=== PATIENT | male | born 1995 | race Caucasian/White ===

== ENCOUNTER 2019-09-19 15:18 | Emergency (ER) | payer SELFPAY ==
[2019-09-19] MEDS ORDERED: 0.9 % SODIUM CHLORIDE 1,000 ML BAG IV ONE (15:24)
[2019-09-19] MEDS ORDERED: ONDANSETRON HCL IV 4 MG/2 ML VIAL IVP ONE (15:24)
--- NOTE | 2019-09-19 15:30 | Emergency Department Record ---
History of Present Illness - General Chief complaint: Vomiting Stated complaint: VOMITING,NOT HIMSELF Time Seen by Provider: 09/19/19 15:24 Source: Patient Mode of Arrival: Ambulatory Limitations: No limitations - History of Present Illness Initial comments: 24 yo male presents with nausea, vomiting and softer stools. No fever. The onset was Wednesday with the nausea and vomiting. He felt better yesterday then the nausea intensified again today. No fever. No blood in the vomit or stools. No abdominal surgery history. He is normally healthy. No abdominal pain. Rare alcohol use. He is a smoker. He was around a child with similar symptoms. NO PCP. No Medications. MD complaint: Diarrhea (Soft), Nausea, Vomiting -: Days(s) (3) Description of Vomiting: Watery Description of Diarrhea: Other (soft, no diarrhea) Location: Other Radiation: None Severity: Mild Quality: Other Consistency: Intermittent Improves with: None Worsens with: Eating Context: Other Associated Symptoms: Denies other symptoms - Related Data Previous Rx's Medication Instructions Recorded Ondansetron [Zofran Odt] 4 mg PO Q8H #10 tab.rapdis 09/19/19 Allergies Allergy/AdvReac Type Severity Reaction Status Date / Time No Known Drug Allergies Allergy Verified 09/19/19 15:26 Review of Systems Constitutional: Denies: Chills, Fever, Malaise, Weakness Eyes: Denies: Eye discharge, Eye pain, Photophobia, Vision change ENT: Denies: Congestion, Throat pain Respiratory: Denies: Cough, Dyspnea Cardiovascular: Denies: Chest pain, Palpitations, Syncope Endocrine: Denies: Fatigue Gastrointestinal: Reports: As per HPI, Nausea, Vomiting. Denies: Diarrhea (softer but not watery) Genitourinary: Denies: Dysuria, Frequency, Hematuria Musculoskeletal: Denies: Arthralgia, Back pain, Myalgia Skin: Denies: Bruising, Change in color, Rash Neurological: Denies: Headache Psychiatric: Denies: Anxiety Hematological/Lymphatic: Denies: Easy bleeding, Easy bruising Physical Exam - General General Appearance: Alert, Oriented x3, Cooperative, No acute distress Limitations: No limitations - Head Head exam: Atraumatic, Normal inspection - Eye Eye exam: Normal appearance, PERRL. negative: Conjunctival injection, Scleral icterus - ENT ENT exam: Normal exam, Mucous membranes dry, Mucous membranes moist Ear exam: Normal external inspection Nasal Exam: Normal inspection Mouth exam: Normal external inspection Teeth exam: Normal inspection Throat exam: Normal inspection - Neck Neck exam: Normal inspection - Respiratory Respiratory exam: Normal lung sounds bilaterally. negative: Respiratory distress - Cardiovascular Cardiovascular Exam: Regular rate, Normal rhythm, Normal heart sounds - GI/Abdominal GI/Abdominal exam: Soft. negative: Distended, Guarding, Rebound, Rigid, Tenderness - Rectal Rectal exam: Deferred - exam: Deferred - Extremities Extremities exam: Normal inspection - Back Back exam: Denies: CVA tenderness (R), CVA tenderness (L) - Neurological Neurological exam: Alert, Oriented X3 - Psychiatric Psychiatric exam: Normal affect, Normal mood - Skin Skin exam: Dry, Intact, Normal color, Warm Course - Reevaluation(s) Reevaluation #1: 09/19/19 16:21 The labs results were reviewed There are no acute significant abnormalities of the CBC There are no acute significant abnormalities of the CMP 09/19/19 16:22 We discussed the results of the tests and questions were answered at the time of discharge. The patient is doing well without nausea and is comfortable with DC. We discussed reasons to immediately return to the ED as well as close follow up. DC vitals were reviewed. Medical Decision Making - Lab Data Result diagrams: 09/19/19 15:30 09/19/19 15:30 Disposition Disposition: Discharge Clinical Impression: Nausea & vomiting Disposition: Home, Self-Care Condition: (1) Good Instructions: Acute Nausea and Vomiting (ED) Additional Instructions: Review this ER visit and the tests performed with your family doctor Call your doctor for the next available follow up appointment Return to the ER for a recheck if worse, any new concerns or questions Take the prescriptions provided as directed Prescriptions: Ondansetron [Zofran Odt] 4 mg PO Q8H #10 tab.rapdis Forms: Patient Portal Access Time of Disposition: 16:21 Quality - Quality Measures Quality Measures: N/A - Blood Pressure Screening Does Patient Have Any of the Following: No Blood Pressure Classification: Pre-Hypertensive BP Reading Systolic Measurement: 137 Diastolic Measurement: 87 Screening for High Blood Pressure: < Pre-Hypertensive BP, F/U Documented > [G8950] Pre-Hypertensive Follow-up Interventions: Referral to alternative/primary care provider.
[2019-09-19 15:36] LABS: ABSOLUTE NEUTROPHIL COUNT 6.24; BASO % 0.1 % (0-6); EOS % 1.6 % (0-6); GRAN % 69.8 % (47-80); HEMATOCRIT 53.1 % (42.0-52.0); HEMOGLOBIN 17.5 gm/dl (14.0-18.0); LYMPH % 16.7 % (16-45); MEAN CELL VOLUME 94.7 fl (81-97); MEAN CORPUSCULAR HEMOGLOBIN 31.2 pg (27-33); MEAN PLATELET VOLUME 10.4 fl (7.4-10.4); MONO % 11.8 % (0-9); PLATELET COUNT 224 K/uL (130-400); RED BLOOD COUNT 5.61 M/uL (4.40-5.70); RED CELL DISTRIBUTION WIDTH 13.3 % (11.5-14.5); WHITE BLOOD COUNT W/O DIFF 8.9 K/uL (4.2-12.2)
[2019-09-19 15:45] LABS: BLOOD UREA NITROGEN 13 mg/dL (6-20)
[2019-09-19 15:46] LABS: EST GLOMERULAR FILTRATION RATE > 60 mL/min; LIPASE 30 U/L (13-60); TOTAL PROTEIN 7.2 g/dL (6.6-8.7)
[2019-09-19 15:48] LABS: GLUCOSE,RANDOM 106 mg/dL (74-109)
[2019-09-19 15:51] LABS: ALB/GLOB RATIO 1.7 (1.1-1.8); ALBUMIN 4.5 g/dL (4.0-5.0); ALKALINE PHOSPHATASE 94 U/L (40-129); ALT/SGPT 20 U/L (<41); AST/SGOT 27 U/L (10.0-50.0)
== END 2019-09-19 16:32 | disposition home or self-care (01) ==
LOC: ER 15:18
DX: R11.2 Nausea with vomiting, unspecified (principal)
CPT/HCPCS: 80053; 83690; 85025; 96361; 96374; 99284; J2405; J7030